=== PATIENT | male | born 1970 | race Caucasian/White ===

== ENCOUNTER → 2022-03-28 | Outpatient (CLI) | payer BC ==
[2022-03-28 15:02] LABS: BASO # 0.04 K/mm3 (0.02-0.10); EOS # 0.17 K/mm3 (0.04-0.40); EOS % 2.8 % (0.0-4.0); HEMATOCRIT 43.5 % (42.0-52.0); HEMOGLOBIN 14.9 g/dL (13.5-18.0); LYMPH# 1.72 K/mm3 (1.50-4.00); MEAN CELL VOLUME 90 fl (78-100); MEAN CORPUSCULAR HEMOGLOBIN 31 pg (27-31); MEAN CORPUSCULAR HGB CONC 34 g/dL (33-37); MEAN PLATELET VOLUME 9.6 fl (7.4-10.4); NEU # 3.65 K/mm3 (1.40-6.50); PLATELET COUNT 235 K/mm3 (130-400); RED BLOOD COUNT 4.84 M/mm3 (4.20-5.60); RED CELL DISTRIBUTION WIDTH 12.6 % (11.5-14.5); WHITE BLOOD COUNT 6.1 K/mm3 (4.8-10.8)
[2022-03-28 15:27] LABS: ALBUMIN 4.2 g/dL (3.5-5.0); POTASSIUM 3.8 mmol/L (3.5-5.1)
[2022-03-28 15:28] LABS: CALCIUM 9.3 mg/dL (8.3-10.5)
[2022-03-28 15:29] LABS: TOTAL PROTEIN 7.1 g/dL (6.4-8.3)
[2022-03-28 15:31] LABS: TOTAL BILIRUBIN 0.4 mg/dL (0.2-1.2)
[2022-03-28 15:45] LABS: URINE APPEARANCE CLEAR; URINE BILIRUBIN NEGATIVE (NEGATIVE); URINE BLOOD NEGATIVE (NEGATIVE); URINE COLOR YELLOW; URINE GLUCOSE NEGATIVE (NEGATIVE); URINE KETONE NEGATIVE (NEGATIVE); URINE LEUKOCYTE ESTERASE TRACE (NEGATIVE); URINE NITRATE NEGATIVE (NEGATIVE); URINE PROTEIN(semi-quant) NEGATIVE (NEGATIVE); URINE UROBILINOGEN NORMAL (NORMAL); URINE WBC 0-1 /hpf (0-3)
== END ==
LOC: LAB 14:46 → EDBD 14:46
PROVIDERS: Nurse Practitioner Family
DX: R10.13 Epigastric pain (principal); Z83.49 Family history of other endocrine, nutritional and metabolic diseases

== ENCOUNTER → 2022-04-09 | Outpatient (CLI) | payer BC | LOC: RAD 07:12 | DX: K80.20 Calculus of gallbladder without cholecystitis without obstruction (principal); K76.0 Fatty (change of) liver, not elsewhere classified ==